=== PATIENT | female | born 1970 | race Caucasian/White ===

== ENCOUNTER 2021-09-15 17:41 | Emergency (ER) | payer BC ==
--- NOTE | 2021-09-15 18:09 | EDM.PDOC ---
ED HPI GENERAL MEDICAL PROBLEM - General Chief Complaint: General Stated Complaint: fell on post op shoulder Time Seen by Provider: 09/15/21 17:45 Source of Information: Reports: Patient - History of Present Illness INITIAL COMMENTS - FREE TEXT/NARRATIVE: Fell from ground level onto right shoulder and ribs just prior to arrival. Did not hit head or lose consciousness. Moves all fingers. Recent right rotator cuff surgery. 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 ED EXAM, GENERAL - Physical Exam Exam: See Below Exam Limited By: No Limitations General Appearance: Alert, Other (initially anxious and in pain, but resolved) Eye Exam: Bilateral Eye: EOMI Ears: Normal External Exam Nose: No Blood Throat/Mouth: Normal Voice, No Airway Compromise Head: Atraumatic, Normocephalic Neck: Normal Inspection, Supple, Non-Tender, Full Range of Motion Respiratory/Chest: No Respiratory Distress, Lungs Clear, Normal Breath Sounds, No Accessory Muscle Use, Chest Non-Tender Cardiovascular: Normal Peripheral Pulses, Regular Rate, Rhythm, No Edema GI/Abdominal: Soft, Non-Tender, No Distention Back Exam: Normal Inspection, Full Range of Motion Extremities: Normal Inspection, Normal Capillary Refill, Other (right arm in sling, moves fingers and arm) Neurological: Alert, Oriented, Normal Cognition, Normal Gait, No Motor/Sensory Deficits Psychiatric: Normal Affect, Normal Mood Skin Exam: Warm, Dry, Intact, Normal Color Lymphatic: No Adenopathy Course - Vital Signs Last Recorded V/S: Last Vital Signs Temp 98.9 F 09/15/21 18:02 Pulse 88 09/15/21 18:02 Resp 20 09/15/21 18:02 BP 138/94 H 09/15/21 18:02 Pulse Ox 96 09/15/21 18:02 - Orders/Labs/Meds Orders: Active Orders 24 hr Category Date Time Status Ribs 2V w Chest Rt [CR] Stat Exams 09/15/21 17:59 Taken Shoulder Comp Rt [CR] Stat Exams 09/15/21 17:59 Taken Meds: Medications Discontinued Medications Generic Name Dose Route Start Last Admin Trade Name Ender PRN Reason Stop Dose Admin Acetaminophen 1,000 mg 09/15/21 18:23 09/15/21 18:40 Acetaminophen 500 Mg Tab PO 09/15/21 18:24 1,000 mg ONETIME ONE Administration Tramadol HCl 50 mg 09/15/21 18:22 09/15/21 18:40 Tramadol 50 Mg Tab PO 09/15/21 18:23 50 mg ONETIME ONE Administration - Re-Assessments/Exams Free Text/Narrative Re-Assessment/Exam: 09/15/21 19:06 States feels much better now. Wants to go home. 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 Departure - Departure Time of Disposition: 19:15 Disposition: Home, Self-Care 01 Condition: Good Clinical Impression: Fall - Discharge Information *PRESCRIPTION DRUG MONITORING PROGRAM REVIEWED*: Yes *COPY OF PRESCRIPTION DRUG MONITORING REPORT IN PATIENT ITZEL: No Instructions: Fall Prevention in the Home, Adult, [id number] Forms: ED Department Discharge Additional Instructions: Follow up with your surgeon. Continue pain meds as previoulsy prescribed. Sepsis Event Note (ED) - Focused Exam Vital Signs: Vital Signs Temp Pulse Resp BP Pulse Ox 09/15/21 18:02 98.9 F 88 20 138/94 H 96 - Problem List & Annotations (1) Fall SNOMED Code(s): 6191921, 263868412 Code(s): W19.XXXA - UNSPECIFIED FALL, INITIAL ENCOUNTER Status: Acute Qualifiers: Encounter type: initial encounter Qualified Code(s): W19.XXXA - Unspecified fall, initial encounter - My Orders Last 24 Hours: My Active Orders 09/15/21 17:59 Ribs 2V w Chest Rt [CR] Stat Shoulder Comp Rt [CR] Stat - Assessment/Plan Last 24 Hours: My Active Orders 09/15/21 17:59 Ribs 2V w Chest Rt [CR] Stat Shoulder Comp Rt [CR] Stat
[2021-09-15] MEDS: traMADol 50 MG Tab PO ONE (18:40)
[2021-09-15] MEDS: Acetaminophen 500 MG Tab PO ONE (18:40)
== END 2021-09-15 19:25 | disposition home or self-care (01) ==
LOC: CC.ED 17:41
DX: M25.511 Pain in right shoulder (principal); Z88.8 Allergy status to other drugs, medicaments and biological substances; Z88.6 Allergy status to analgesic agent
CPT/HCPCS: 71101-RT; 73030-RT; 99283-25; A9270-GY